=== PATIENT | female | born 1935 | race Caucasian/White ===

== ENCOUNTER → 2017-03-02 | Outpatient (CLI) | payer OTHER, MEDICARE ==
[~2017-03-02] MED LIST: CALCIUM 500 WI1 EAC3; LISINOPRIL10 MG OR; RESTASIS1 EACH; SIMVASTATIN20 MG OR
== END ==
LOC: RAD 13:47
DX: Z12.31 Encounter for screening mammogram for malignant neoplasm of breast (principal)

== ENCOUNTER → 2018-05-16 | Outpatient (CLI) | payer OTHER, MEDICARE | LOC: RAD 15:01 | DX: M47.816 Spondylosis without myelopathy or radiculopathy, lumbar region (principal); M48.061 Spinal stenosis, lumbar region without neurogenic claudication; M41.86 Other forms of scoliosis, lumbar region; I70.0 Atherosclerosis of aorta; W19.XXXA Unspecified fall, initial encounter ==